=== PATIENT | female | born 1955 | race African-American/Black ===

== ENCOUNTER 2018-04-28 10:45 | Outpatient (CLI) | payer MEDICARE, MEDICAID | END 2018-04-28 23:59 | disposition home or self-care (01) | LOC: RAD 10:45 | PROVIDERS: ATTEND Family Medicine | DX: R15.9 Full incontinence of feces (principal); R10.9 Unspecified abdominal pain | CPT/HCPCS: 74018 ==

== ENCOUNTER 2018-05-01 11:43 | Emergency (ER) | payer MEDICARE, MEDICAID ==
[~2018-05-01] VITALS: Ht 167.6 cm; Wt 68.0 kg
[2018-05-01 11:43] VITALS: BP 139/87
== END 2018-05-01 13:26 | disposition home or self-care (01) ==
LOC: ER 11:46
DX: S93.492A Sprain of other ligament of left ankle, initial encounter (principal); R25.2 Cramp and spasm; F41.9 Anxiety disorder, unspecified; G47.00 Insomnia, unspecified; X58.XXXA Exposure to other specified factors, initial encounter; Y93.89 Activity, other specified; Y92.89 Other specified places as the place of occurrence of the external cause; Y99.8 Other external cause status
CPT/HCPCS: 93971; 99284; A4606; Z7610

== ENCOUNTER 2019-02-20 11:06 | Outpatient (CLI) | payer MEDICARE, MEDICAID | END 2019-02-20 23:59 | disposition home or self-care (01) | LOC: RAD 11:06 | PROVIDERS: ATTEND Podiatrist | DX: M19.072 Primary osteoarthritis, left ankle and foot (principal); M20.12 Hallux valgus (acquired), left foot; M81.0 Age-related osteoporosis without current pathological fracture | CPT/HCPCS: 73590-TC; 73630-TC ==

== ENCOUNTER 2019-02-25 11:00 | Inpatient (IN) | payer MEDICARE, MEDICAID ==
[~2019-02-25] VITALS: Ht 154.9 cm; Wt 81.6 kg
[2019-02-25] MEDS ORDERED: ONDANSETRON HCL/PF 4 MG/2 ML VIAL ONE (11:36)
[2019-02-25] MEDS ORDERED: MORPHINE SULFATE INJ 2 MG/ML DISP.SYRIN ONE (11:37)
[2019-02-25 11:39] LABS: BASOPHILS # (AUTO) 0.1 /CMM (0.0-0.2); BASOPHILS % (AUTO) 0.8 % (0.0-2.0); EOSINOPHILS % (AUTO) 3.3 % (0.0-6.0); HEMATOCRIT 44 % (33-45); HEMOGLOBIN 14.4 g/dL (11.5-14.8); LYMPHOCYTES # (AUTO) 3.5 /CMM (0.8-4.8); LYMPHOCYTES % (AUTO) 49.5 % (20.0-44.0); MEAN CORPUSCULAR HGB CONC 33 g/dl (31.0-36.0); MEAN CORPUSCULAR VOLUME 91 fL (82-100); MONOCYTES # (AUTO) 0.6 /CMM (0.1-1.30); MONOCYTES % (AUTO) 7.9 % (2.0-12.0); NEUTROPHILS # (AUTO) 2.8 /CMM (1.8-8.9); NEUTROPHILS % (AUTO) 38.5 % (43.0-81.0); PLATELET COUNT (AUTO) 308 /CMM (150-450); RED BLOOD CELL COUNT(AUTO) 4.85 MIL/uL (4.0-5.2); WHITE BLOOD COUNT (AUTO) 7.2 K/uL (4.3-11.0)
--- NOTE | 2019-02-25 11:43 | NUR ---
LLE pain and swelling for the past 3 months. PT AAOX4, VSS. DENIES CP, SOB, DIZZINESS, N/V/D AT THIS TIME. PT SEEN & EVAL'D BY KESHIA MIRANDA. MEDICATED ORDERED, PT OH WELL. PT TO CT VIA [facility].
[2019-02-25] MEDS ORDERED: OXYC10TA49 PO (11:47)
[2019-02-25] MEDS ORDERED: ZOLP5TAB2 PO (11:47)
[2019-02-25] MEDS ORDERED: CLON1TAB12 PO (11:47)
[2019-02-25] MEDS ORDERED: MORP15TA PO (11:47)
[2019-02-25 11:56] LABS: CALCIUM, SERUM 8.9 mg/dL (8.5-10.1); POTASSIUM 4.3 mmol/L (3.5-5.1)
[2019-02-25] MEDS ORDERED: MORPHINE SULFATE INJ 2 MG/ML DISP.SYRIN IV ONE (12:00)
[2019-02-25] MEDS ORDERED: ONDANSETRON HCL/PF - ER 4 MG/2 ML VIAL IV ONE (12:00)
[2019-02-25 12:01] LABS: ALBUMIN 3.3 g/dL (3.4-5.0); BILIRUBIN,TOTAL 0.2 mg/dL (0.2-1.0); TOTAL PROTEIN, SERUM 7.6 g/dL (6.4-8.2)
--- NOTE | 2019-02-25 12:11 | NUR ---
CALLED FOR MED-SURGE BED, TURNED IN MOVE SHEET, AND PAGED EPIC DR LIAO.
[2019-02-25] MEDS ORDERED: IV NS 0.9% 250 ML IV ONE (12:51)
[2019-02-25] MEDS ORDERED: IOHEXOL-300 100 ML VIAL IV ONE (12:51)
[2019-02-25] MEDS ORDERED: CT SWABBABLE VALVE TRANS SET 1 EA INFUS.SET MC ONE (12:51)
[2019-02-25] MEDS ORDERED: ONDANSETRON HCL/PF 4 MG/2 ML VIAL IVP PRN (13:00)
[2019-02-25] MEDS ORDERED: ACETAMINOPHEN 325 MG TABLET PO PRN (13:00)
[2019-02-25] MEDS ORDERED: MAG HYDROX/AL HYDROX/SIMETH 30 ML UDC PO PRN (13:00)
[2019-02-25] MEDS ORDERED: ZOLPIDEM TARTRATE 5 MG TABLET PO PRN (13:00)
[2019-02-25] MEDS ORDERED: MAGNESIUM HYDROXIDE 30 ML UDC PO PRN (13:00)
[2019-02-25] MEDS ORDERED: Z GUARD REMEDY 2 OZ OINT TP PRN (13:00)
--- NOTE | 2019-02-25 15:01 | NUR ---
REPORT GIVEN TO JEREL PAGE AT [facility] FOR CONT OF CARE.
--- NOTE | 2019-02-25 15:20 | NUR ---
MS RN NOTES RECEIVED PATIENT ALERT, ORIENTED X4 WHEELCHAIR BOUND. PATIENT STATES SHE HAD EDEMA TO HER BILATERAL LOWER EXTREMITIES FOR 3 MONTHS. STATES SHE HAS NOT BEEN ABLE TO WALK FOR SEVERAL YEARS ALREADY. HAD MULTIPLE SURGERIES. HISTORY REPORTS OA, ANXIETY AND DEPRESSION. PATIENT STATES SHE LIVES IN A SENIOR CARE. IN STABLE CONDITION. SEEN BY DR ROMAN. ORDERS PLACED. PATIENT ORIENTED TO ROOM. CALL LIGHT WITHIN REACH. BED IN LOW LOCKED POSITION. WILL CONTINUE TO MONITOR.
[2019-02-25] MEDS: IV NS 0.9% 1,000 ML IV PRN (15:48)
[2019-02-25] MEDS: ENOXAPARIN SODIUM 40 MG/0.4 ML DISP.SYRIN SQ SCH (15:52)
--- NOTE | 2019-02-25 17:24 | NUR ---
MS RN NOTES PATIENT IN BED SLEEPING. RESTING COMFORTABLE. CARE ENDORSED TO ARJUN.
[2019-02-25 19:57] VITALS: BP 140/71
[2019-02-25] MEDS: HYDROCODONE/APAP 5/325MG 1 EACH TABLET PO PRN (21:29)
[2019-02-25] MEDS: ZOLPIDEM TARTRATE 5 MG TABLET PO SCH (21:29)
[2019-02-26] MEDS: IV NS 0.9% 1,000 ML IV PRN (05:31)
[2019-02-26 06:41] LABS: BASOPHILS % (AUTO) 0.7 % (0.0-2.0); HEMATOCRIT 40 % (33-45); HEMOGLOBIN 13.2 g/dL (11.5-14.8); LYMPHOCYTES # (AUTO) 2.9 /CMM (0.8-4.8); LYMPHOCYTES % (AUTO) 53.9 % (20.0-44.0); MEAN CORPUSCULAR HGB CONC 33 g/dl (31.0-36.0); MEAN CORPUSCULAR VOLUME 89 fL (82-100); MONOCYTES # (AUTO) 0.5 /CMM (0.1-1.30); MONOCYTES % (AUTO) 9.9 % (2.0-12.0); NEUTROPHILS # (AUTO) 1.8 /CMM (1.8-8.9); NEUTROPHILS % (AUTO) 32.5 % (43.0-81.0); PLATELET COUNT (AUTO) 271 /CMM (150-450); RED BLOOD CELL COUNT(AUTO) 4.43 MIL/uL (4.0-5.2); WHITE BLOOD COUNT (AUTO) 5.4 K/uL (4.3-11.0)
[2019-02-26 07:06] LABS: THYROID STIMULATING HORMONE 1.02 uIU/mL (0.358-3.74)
[2019-02-26 07:08] LABS: CALCIUM, SERUM 8.3 mg/dL (8.5-10.1); PHOSPHORUS 3.9 mg/dL (2.5-4.9); POTASSIUM 4.2 mmol/L (3.5-5.1)
--- NOTE | 2019-02-26 07:23 | NUR ---
MS RN OPENING NOTES RECEIVED PATIENT AWAKE IN BED IN NO ACUTE SIGNS OF DISTRESS. A/O X4. ABLE TO MAKE NEEDS KNOWN, DENIES PAIN OR ANY DISCOMFORTS AT THIS TIME. SKIN WARM TO TOUCH. ON ROOM AIR, RESPIRATIONS EVEN AND UNLABORED. IV ACCESS ON LAC G#20 INTACT AND PATENT, IVF OF NS @ 75ML/HR INFUSING WELL, NO S/S OF INFILTRATIONS NOTED. SAFETY MEASURES IN PLACE. BED IN LOW LOCKED POSITION WITH SR UP X2. CALL LIGHT IN REACH. WILL CONTINUE TO MONITOR ACCORDINGLY.
[2019-02-26 08:00] VITALS: BP 149/59
[2019-02-26] MEDS: ENOXAPARIN SODIUM 40 MG/0.4 ML DISP.SYRIN SQ SCH (08:45)
--- NOTE | 2019-02-26 09:00 | NUR ---
RN NOTES PATIENT VERBALIZED THAT SHE WANTS TO SMOKE. SMOKING CESSATION EDUCATION INITIATED BUT PT STILL WANTED TO SMOKE. SMOKE CONSENT SIGNED AND FILED ON CHART. PT ASSISTED TO SMOKE OUTSIDE BY BAND TOP MAKER VIA WHEELCHAIR.
[2019-02-26] MEDS: HYDROCODONE/APAP 5/325MG 1 EACH TABLET PO PRN ×3 (11:20→21:47)
--- NOTE | 2019-02-26 11:22 | NUR ---
RN NOTES/ PAIN MANAGEMENT PT RETURNED FROM CT SCAN AND C/O ACHING PAIN ON HER LOWER BACK AND SACRAL AREA. PRN NORCO 5/325MG PO ADMINISTERED AT 1120. WILL CONTINUE TO MONITOR AND REASSESS PT.
--- NOTE | 2019-02-26 14:42 | NUR ---
Social service consult requested by Dr. Garza for homelessness. Pt. is a 63 year old female who was admitted to [facility] for left lower extremity pain and swelling. Per ER notes, Pt. is wheelchair bound with past medical history of anxiety, insomnia, arthritis, spinal fracture presents with left lower extremity pain and swelling �3 months. ADONIS met with pt. bedside. Pt. is alert and oriented x 4. Pt. is very pleasant and cooperative with SW. Pt's hair appeared disheveled. Pt. has her motorized wheelchair bedside. Pt's emergency contact is her kiqjtqtn-ul-fmr Sapphire Rawls . Pt. is a . Pt. resides at [facility] located at [address] [place] [address] in [facility] . Pt. declined SNF placement and stated she will go back to [facility] or to her son and pfgftttl-oz-ticy house in [place]. Pt's son Alex is in [facility] at this time for a job. Pt. receives approximately $1900 per month of SSI/pension benefits. Pt. denies alcohol and drug use. Pt. smokes a pack a day of cigarettes. Pt. states her watch caser is Julio Condon at [facility]. Pt. gave authorization for SW to contact Julio Condon at [facility]. ADONIS called Julio Condon and left him a voicemail message requesting a call back in regards to pt. being able to return back to the snf.
[2019-02-26] MEDS: clonazePAM 1 MG TABLET PO PRN (15:01)
--- NOTE | 2019-02-26 15:05 | NUR ---
RN NOTES PATIENT NOTED ANXIOUS AND ASKED FOR MEDICINE TO CALM HER DOWN. PRN KLONOPIN 1MG PO GIVEN AT 1301. WILL CONTINUE TO MONITOR.
[2019-02-26 16:00] VITALS: BP 134/75
--- NOTE | 2019-02-26 17:10 | NUR ---
RN NOTES/ PAIN MANAGEMENT PT IN BED AND C/O ACHING PAIN ON HER LOWER BACK AND SACRAL AREA WITH SCALE OF 7/10. PRN NORCO 5/325MG PO ADMINISTERED AT 1708. WILL CONTINUE TO MONITOR AND REASSESS PT.
--- NOTE | 2019-02-26 18:44 | NUR ---
MS RN CLOSING NOTES PATIENT IN BED AWAKE AND RESTING AT MODERATE HIGH BACKREST POSITION. A/O X4. ABLE TO MAKE NEEDS KNOWN. SKIN WARM TO TOUCH. BLE REMAINS SWOLLEN AND ELEVATED WITH PILLOWS. ON ROOM AIR, TOLERATING WELL WITH NO SOB NOTED. PIV ON LAC G#20 INTACT AND PATENT, IVF OF NS @ 75ML/HR INFUSING WELL, NO S/S OF INFILTRATIONS NOTED. ALL NEEDS AND CARE ATTENDED WELL. SAFETY MEASURES KEPT IN PLACE. BED IN LOW LOCKED POSITION WITH SR UP X2. CALL LIGHT IN REACH. WILL ENDORSE TO AIR BRUSH ARTIST NURSE FOR JASMIN
--- NOTE | 2019-02-26 19:20 | NUR ---
MS RN NOTES RECEIVED ON BED A/O X4,HOMELESS,LEFT LOWER LEG SWOLLEN,ELEVATED ON PILLOWS.SALINE LOCK LEFT AC INTACT AND PATENT,INFUSING NS AT 75ML/HR RATE.,SITE PATENT.CALL LIGHT IN REACH,NEEDS ANTICIPATED.
[2019-02-26 20:00] VITALS: BP 140/59
--- NOTE | 2019-02-26 20:00 | NUR ---
MS RN NOTES WENT DOWN TO SMOKE VIA WHEELCHAIR ACCOMPANIED BY NIGHAT JAMESON.
[2019-02-26] MEDS: ZOLPIDEM TARTRATE 5 MG TABLET PO SCH (22:24)
--- NOTE | 2019-02-26 22:30 | NUR ---
MS RN NOTES DUE JOVIIEN GIVEN ORDERED.
--- NOTE | 2019-02-27 01:00 | NUR ---
MS RN NOTES SOUND ASLEEP,KEPT WARM AND COMFORTABLE.
[2019-02-27] MEDS: HYDROCODONE/APAP 5/325MG 1 EACH TABLET PO PRN ×2 (06:18→10:22)
--- NOTE | 2019-02-27 06:18 | NUR ---
MS RN NOTES AWAKE, C/P PAIN ON LEFT LEG 5/10 ON PAIN SCALE,NORCO 5/325MG,1 TAB PO GIVEN PER PATIENT REQUEST.
--- NOTE | 2019-02-27 06:29 | NUR ---
MS RN NOTES SLEPT WELL AT NIGHT WITH AMBIEN,REFUSED IVF,CLAIMED SHE'S GOING HOME.NO FALL,NO INJURY,ABLE TO TO TRANSFER TO HER MOBILE WHEELCHAIR.IN NO ACUTE DISTRESS.WILL GIVE REPORT TO AHEMT BELTRÁN FOR JASMIN.
--- NOTE | 2019-02-27 07:30 | NUR ---
m/s marcial: initial assessment received pt in bed awake, a/ox4. pt wants to go home today. c/o pain on abdomen due to lovenox shot she was getting as stated. informed her that i will let the doctor know about your symptom. no swelling/redness to abdomen. instructed to call for assistance. will continue to monitor. Addendum: 02/27/19 at 1537 by LESVIA MANNING LVN pt refusing iv fluids to be connected.
[2019-02-27] MEDS: clonazePAM 1 MG TABLET PO PRN (07:50)
[2019-02-27 08:00] VITALS: BP 151/85
[2019-02-27 08:01] VITALS: BP 151/85
[2019-02-27] MEDS: ENOXAPARIN SODIUM 40 MG/0.4 ML DISP.SYRIN SQ SCH (09:00)
--- NOTE | 2019-02-27 09:00 | NUR ---
m/s engineer booster and exhauster: notes lovenox held due to c/o irritation and pain at the injection site. will consult with dr. sanford today, awaiting to make rounds.
--- NOTE | 2019-02-27 10:22 | NUR ---
m/s inside sales trainer: notes c/o 03/25 generalized discomfort. medicated with norco 5/325mg po as ordered. instructed to call for assistance. will continue to monitor.
--- NOTE | 2019-02-27 11:22 | NUR ---
m/s engine monitor: notes pt lying in bed with eyes close. no s/s of distress. call light within reach. will continue to monitor.
--- NOTE | 2019-02-27 13:42 | NUR ---
m/s network/telecom engineer: notes dr. sanford here and informed about irritation and pain on lovenox shot with order to discontinue medication. order read back and carried out.
--- NOTE | 2019-02-27 14:52 | NUR ---
m/s psychologist experimental: notes dr. sanford notified re: held home medications (ms contin and oxycodone) with order to continue home medications. orders read back and carried out.
[2019-02-27] MEDS: MORPHINE SULFATE SR 15 MG TABLET.SA PO SCH ×2 (15:18→21:00)
[2019-02-27 15:54] VITALS: BP 157/78
[2019-02-27] MEDS: oxyCODONE IR immediate release 5 MG PO PRN (16:29)
--- NOTE | 2019-02-27 17:30 | NUR ---
m/s biomass plant technician: notes pt verbalized relief of pain. needs attended. dinner served. instructed to call for assistance. will monitor.
--- NOTE | 2019-02-27 18:17 | NUR ---
m/s tax collection coordinator: notes pt in bed talking on her cell phone at this time. no distress noted. instructed to call for assistance.
--- NOTE | 2019-02-27 19:00 | NUR ---
m/s announcer: notes bedside report given to medardo (kurt) for continuity of care.
--- NOTE | 2019-02-27 19:22 | NUR ---
RN OPENING NOTES RECEIVED PATIENT AWAKE, RESTING COMFORTABLY IN BED. PATIENT IS A/O X 4. PATIENT IS WHEELCHAIR BOUND. ABLE TO STATE NEEDS. NO SIGNS OF RESPIRATORY DISTRESS. DENIES SOB AT THIS TIME. DENIES PAIN AT THIS TIME. INSTRUCTED TO CALL FOR ASSISTANCE. SAFETY PRECAUTIONS IMPLEMENTED; CALL LIGHT WITHIN REACH, BED LOCKED, BED LOW, SIDERAILS UP X2, WHEELCHAIR NEAR. WILL CONTINUE TO MONITOR PATIENT THROUGHOUT THE SHIFT.
[2019-02-27 20:00] VITALS: BP 147/76
--- NOTE | 2019-02-27 20:30 | NUR ---
RN NOTES PATIENT WENT DOWNSTAIRS TO SMOKE VIA WHEELCHAIR. PATIENT IS ACCOMPANIED BY IMMACULATE, RADIO ANTENNA INSTALLER.
--- NOTE | 2019-02-27 21:03 | NUR ---
RN NOTES PATIENT RETURNED TO ROOM. PATIENT IS SAFE. WILL CONTINUE TO MONITOR.
--- NOTE | 2019-02-27 21:10 | NUR ---
RN NOTES MS CONTIN NOT ADMINISTERED. MED WAS SCHEDULED FOR 2100. FREQUENCY IS EVERY 12 HOURS PER MD ORDER. LAST MS CONTIN ADMINISTERED WAS AT 1518. WITHHELD MEDICATION.
[2019-02-27] MEDS: ZOLPIDEM TARTRATE 5 MG TABLET PO SCH (22:47)
--- NOTE | 2019-02-27 22:47 | NUR ---
RN NOTES DUE JOVIIEN GIVEN ORDERED.
--- NOTE | 2019-02-28 01:20 | NUR ---
RN NOTES PATIENT REFUSES CONTINUATION OF IV FLUIDS BECAUSE IT CAUSES THE ALARM TO GO OFF EVERY TIME SHE MOVES HER ARM, THUS CAUSING HER TO WAKE UP. IV ON STANDBY AT THIS TIME DUE TO PATIENT'S REQUEST.
--- NOTE | 2019-02-28 01:30 | NUR ---
RN NOTES PATIENT REQUESTED NORCO FOR PAIN 5/10. VITALS WERE: 146/77, PULSE 58, RESP 18, TEMP 98.3, PULSE O2 100%. WILL CONTINUE TO MONITOR PATIENT
[2019-02-28] MEDS: HYDROCODONE/APAP 5/325MG 1 EACH TABLET PO PRN (01:36)
[2019-02-28] MEDS: oxyCODONE IR immediate release 5 MG PO PRN ×3 (05:37→18:28)
--- NOTE | 2019-02-28 07:40 | NUR ---
RN MS OPENING NOTES Received patient remains on room air, no sob noted. Patient denies pain at this time, patient refuses IVF at this time, will ask again later on. Patient's bed at the lowest setting, call light within reach.
[2019-02-28 08:00] VITALS: BP 123/75
[2019-02-28] MEDS: MORPHINE SULFATE SR 15 MG TABLET.SA PO SCH (08:34)
[2019-02-28] MEDS: clonazePAM 1 MG TABLET PO PRN ×2 (09:39→16:50)
[2019-02-28 16:00] VITALS: BP 137/84
--- NOTE | 2019-02-28 18:38 | NUR ---
RN MS CLOSING NOTES Patient remains on room air, no sob noted. Patient shows no s/s of pain. Patient has a cam boot at left leg, patient stated she feels comfortable and not in pain while using the boot. Patient about to be transferred to [facility]. Patient has all the discharge instruction and discharge paperwork with her possession. Patient remains lying down comfortably on bed, bed at the lowest setting, call light within reach.
--- NOTE | 2019-02-28 19:25 | NUR ---
nursing home aide notes Received Pt from morning nurse. Pt is about to be discharge. Pt is alert and oriented X4. Pt is sitting in bed comfortably. Pt respiration is clear. No SOB. No nausea and vomiting. Pt denies any pain or discomfort at this time. Pt VS is stable. Pt has a camp boot at Left leg. Discharged instruction sheet has been given, medications education and F/U instruction with MD in 1 week. Pt verbalize understanding. Pt's belonging counted and given to the Pt. Skin assessment done. Iv sites is removed. Pt is going to [facility] [place]. Info given to JEREL Nogueira in [facility]. Two personnel ambulance came and picked Patient up by a tamararkaela in stable condition.
== END 2019-02-28 19:25 | DRG 563 ==
LOC: ER 11:03 → MED 13:04
DX: S92.102A Unspecified fracture of left talus, initial encounter for closed fracture (principal); F11.20 Opioid dependence, uncomplicated; R60.0 Localized edema; G89.29 Other chronic pain; F41.9 Anxiety disorder, unspecified; G47.00 Insomnia, unspecified; M19.90 Unspecified osteoarthritis, unspecified site; M54.9 Dorsalgia, unspecified; Z99.3 Dependence on wheelchair; X58.XXXA Exposure to other specified factors, initial encounter; Y92.89 Other specified places as the place of occurrence of the external cause
CPT/HCPCS: 36415; 73700-TC; 80048-TC; 80061-TC; 80076-TC; 83735-TC; 84100-TC; 84443-TC; 85025-TC; 85730-TC; 87081-TC; 97112-TC; 97530-TC; G0378; J1650; J2270; J2405; J7030; J7040; J7050; Q9967

== ENCOUNTER 2019-05-15 07:56 | Outpatient (CLI) | payer MEDICARE, MEDICAID ==
[~2019-05-15 07:56] MED LIST: CLON1TAB12 PO; MORP15TA PO; OXYC10TA49 PO; ZOLP5TAB2 PO
== END 2019-05-15 23:59 | disposition home or self-care (01) ==
LOC: MRI 07:56
PROVIDERS: ATTEND Family Medicine
DX: M62.572 Muscle wasting and atrophy, not elsewhere classified, left ankle and foot (principal); M62.58 Muscle wasting and atrophy, not elsewhere classified, other site; M51.36 Other intervertebral disc degeneration, lumbar region; M25.572 Pain in left ankle and joints of left foot; M25.552 Pain in left hip; M25.562 Pain in left knee; M19.90 Unspecified osteoarthritis, unspecified site; F17.200 Nicotine dependence, unspecified, uncomplicated
CPT/HCPCS: 73718-TC; 73721-TC

== ENCOUNTER 2019-11-30 12:36 | Emergency (ER) | payer MEDICARE, OTHER ==
[~2019-11-30] VITALS: Ht 170.2 cm; Wt 86.2 kg
--- NOTE | 2019-11-30 12:50 | NUR ---
BIB SELF 64 YEAR ROLD FEMALE CHRONIC BILATERAL LEG PAIN, UNABLE TO FILL RX FROM PCP. ALERT AND ORIENTED X3, BREATHING EVEN AND UNLABORED WITH NO DISTRESS NOTED. PATIENT ON HER OWN ELECTRIC W/C. WAITING TO BE SEEN BY .
[2019-11-30 13:22] VITALS: BP 138/80
--- NOTE | 2019-11-30 13:23 | NUR ---
PT LEFT WITH SIGNING D/C PAPERWORK
== END 2019-11-30 13:46 | disposition home or self-care (01) ==
LOC: ER 12:37
DX: G89.29 Other chronic pain (principal); Z76.0 Encounter for issue of repeat prescription; M19.90 Unspecified osteoarthritis, unspecified site; F41.9 Anxiety disorder, unspecified; G47.00 Insomnia, unspecified; F17.200 Nicotine dependence, unspecified, uncomplicated; Z79.899 Other long term (current) drug therapy